=== PATIENT | female | born 1975 | race Caucasian/White ===

== ENCOUNTER 2018-10-28 21:47 | Emergency (ER) | payer OTHER ==
[~2018-10-28] VITALS: Ht 170.2 cm; Wt 84.8 kg
[2018-10-28 23:01] VITALS: Ht 170.2 cm; Wt 84.8 kg
[2018-10-29 01:06] VITALS: BP 136/84
== END 2018-10-29 01:06 | disposition home or self-care (01) ==
LOC: ED 21:47
DX: L03.114 Cellulitis of left upper limb (principal)

== ENCOUNTER 2019-03-16 18:35 | Emergency (ER) | payer OTHER ==
[~2019-03-16] VITALS: Ht 165.1 cm; Wt 81.6 kg
[2019-03-16 18:39] VITALS: Ht 165.1 cm; Wt 81.6 kg
[2019-03-16 20:59] VITALS: BP 118/90
== END 2019-03-16 20:59 | disposition home or self-care (01) ==
LOC: ED 18:35
DX: J34.0 Abscess, furuncle and carbuncle of nose (principal)
CPT/HCPCS: J1885

== ENCOUNTER 2020-05-28 12:06 | Emergency (ER) | payer OTHER ==
[~2020-05-28] VITALS: Ht 167.6 cm; Wt 81.2 kg
[2020-05-28 12:12] VITALS: Ht 167.6 cm; Wt 81.2 kg
[2020-05-28 14:05] LABS: CALCIUM 8.6 mg/dL (8.5-10.1); CARBON DIOXIDE 29.1 mmol/L (21-32); CHLORIDE SERUM 104 mmol/L (98-107); CREATININE SERUM 0.7 mg/dL (0.6-1.0); GFR1 > 60 mL/min; GLUCOSE SERUM 92 mg/dL (74-106); POTASSIUM SERUM 4.2 mmol/L (3.5-5.1); SODIUM SERUM 137 mmol/L (136-145)
[2020-05-28 14:11] LABS: ALBUMIN 3.5 g/dL (3.4-5.0); ALKALINE PHOSPHATASE 60 U/L (46-116); ALT/SGPT 16 U/L (14-59); AST/SGOT 14 U/L (15-37); BILIRUBIN TOTAL 0.2 mg/dL (0.20-1.00); TOTAL PROTEIN, SERUM 7.1 g/dL (6.4-8.2)
[2020-05-28 15:35] VITALS: BP 132/51
== END 2020-05-28 15:35 | disposition home or self-care (01) ==
LOC: ED 12:06
PROVIDERS: Emergency Medicine
DX: R20.2 Paresthesia of skin (principal); R20.0 Anesthesia of skin; R22.41 Localized swelling, mass and lump, right lower limb; R22.42 Localized swelling, mass and lump, left lower limb